=== PATIENT | female | born 1985 | race Caucasian/White ===

== ENCOUNTER 2016-11-10 14:16 | Emergency (ER) | payer MEDICARE | END 2016-11-10 15:12 | disposition left against medical advice (07) | LOC: D.ER 14:16 | DX: Z02.9 Encounter for administrative examinations, unspecified (principal) ==

== ENCOUNTER → 2016-12-10 11:16 | Outpatient (CLI) | payer MEDICARE | END | disposition home or self-care (01) | LOC: D.MRI 11-12 15:00 | DX: M54.2 Cervicalgia (principal) ==

== ENCOUNTER 2017-03-17 11:20 | Emergency (ER) | payer MEDICARE | END 2017-03-17 12:40 | disposition home or self-care (01) | LOC: D.ER 11:20 | DX: S20.312A Abrasion of left front wall of thorax, initial encounter (principal); S50.312A Abrasion of left elbow, initial encounter; Y04.2XXA Assault by strike against or bumped into by another person, initial encounter; Y93.89 Activity, other specified; Y92.029 Unspecified place in mobile home as the place of occurrence of the external cause; S00.03XA Contusion of scalp, initial encounter; F98.8 Other specified behavioral and emotional disorders with onset usually occurring in childhood and adolescence; F17.200 Nicotine dependence, unspecified, uncomplicated ==

== ENCOUNTER 2018-06-26 16:22 | Emergency (ER) | payer SELFPAY ==
[~2018-06-26] VITALS: Ht 154.9 cm; Wt 72.7 kg
[~2018-06-26 16:22] MED LIST: HYDROCODON-ACE1 EAC7 PO
[2018-06-26 17:10] VITALS: Ht 154.9 cm; Wt 72.7 kg
[2018-06-26] MEDS ORDERED: OMEPRAZOLE20 M1 PO (17:13)
[2018-06-26] MEDS ORDERED: NAPROXEN250 MG PO (17:13)
[2018-06-26 18:43] LABS: BASOPHILS 0.5 % (0-2); CALC OSMOLALITY 275 mosm/kg (275-300); CALCIUM 9.5 mg/dL (8.5-10.1); CARBON DIOXIDE 25.8 mmol/L (21.0-32.0); CHLORIDE - SERUM 104 mmol/L (98-107); CREATININE - SERUM 0.6 mg/dL (0.6-1.3); EOSINOPHILS 2.1 % (0-7); GLUCOSE 100 mg/dL (74-106); HEMATOCRIT 41.2 % (36.0-48.0); HEMOGLOBIN 14.3 g/dL (12-16); IMMATURE GRANULOCYTES 0.4 % (0-5); LYMPHOCYTES 23.4 % (15-50); MCHC 34.7 g/dL (31.0-37.0); MCV 92.2 fL (80.0-100.0); MEAN PLATELET VOLUME 9.3 fL (7.4-10.4); NEUTROPHILS 66.6 % (40-80); PLATELET COUNT 280 10x3/uL (130-400); POTASSIUM - SERUM 3.8 mmol/L (3.5-5.1); RBC 4.47 10x6/uL (4.00-5.40); RDW 12.4 % (11.5-14.5); SODIUM 138 mmol/L (136-145); UREA NITROGEN 12 mg/dL (7-18); WBC 10.7 10x3/uL (4.8-10.8); eGFR NON AFRICAN AMERICAN > 90 mL/min (90-120)
[2018-06-26 20:40] LABS: APPEARANCE CLEAR (CLEAR); BILIRUBIN NEGATIVE (NEGATIVE); COLOR YELLOW (YELLOW); GLUCOSE NEGATIVE (NEGATIVE); KETONE NEGATIVE (NEGATIVE); NITRITE NEGATIVE (NEGATIVE); PROTEIN NEGATIVE (NEGATIVE); SPECIFIC GRAVITY 1.015 (1.005-1.020); UROBILINOGEN NORMAL (NORMAL)
[2018-06-26] MEDS ORDERED: BENTYL 20 MG TA20 MG PO (20:50)
[2018-06-26] MEDS ORDERED: ZOFRAN ODT4 MG/UDTAB PO (20:50)
[2018-06-26 21:10] VITALS: BP 106/66
== END 2018-06-26 21:10 | disposition home or self-care (01) ==
LOC: D.ER 16:22
PROVIDERS: Family Medicine
DX: F41.9 Anxiety disorder, unspecified (principal); R19.7 Diarrhea, unspecified; R11.10 Vomiting, unspecified; G40.909 Epilepsy, unspecified, not intractable, without status epilepticus; F17.200 Nicotine dependence, unspecified, uncomplicated